=== PATIENT | female | born 1960 | race Caucasian/White ===

== ENCOUNTER 2018-07-18 09:39 | Inpatient (IN) ==
[2018-07-18] MEDS ORDERED: NS 1,000 ML IV ONE ×2 (10:03→11:57)
[2018-07-18] MEDS ORDERED: ZOFRAN IV ONE (10:03)
[2018-07-18 10:57] LABS: HEMATOCRIT 44.8 % (37.0-47.0); HEMOGLOBIN 16.3 g/dL (12.0-16.0); MCV 88.7 FL (81-99); RBC 5.05 XMIL (4.2-5.4); WBC 6.99 X1000 (4.8-10.8)
[2018-07-18 10:58] LABS: BASO# 0.01 X1000 (0.0-0.2); BASO% 0.1 % (0.0-0.8); EOS# 0.01 X1000 (0.0-0.7); EOS% 0.1 % (0.0-10.0); IMM GRAN# 0.05 X1000 (0.0-0.04); IMM GRAN% 0.7 % (0.0-0.5); LYMPH# 0.82 X1000 (1.2-3.4); LYMPH% 11.7 % (20.5-51.1); MCH 32.3 PG (27-31); MCHC 36.4 g/dL (33-37); MONO# 0.72 X1000 (0.11-0.59); MONO% 10.3 % (1.7-9.3); MPV 11.5 FL (7.4-10.4); NEUT# 5.38 X1000 (1.4-6.5); NEUT% 77.1 % (42.2-75.2); PLT 152 X1000 (130-400); RDW 13.2 % (11.5-14.5)
[2018-07-18 10:59] LABS: LYMPHS 12 % (21-51); MONO 8 % (1-9); SEGS 80 % (42-75)
[2018-07-18 11:02] LABS: ALBUMIN 4.9 g/dL (3.5-5.0); CALCIUM 9.2 mg/dL (8.8-10.2); CREATININE 2.6 mg/dL (0.5-0.9); POTASSIUM 2.8 mmol/L (3.5-5.1); TOTAL BILIRUBIN 0.7 mg/dL (0.20-1.00); TOTAL PROTEIN 8.2 g/dL (6.3-8.3)
[2018-07-18 11:06] LABS: URINE SOURCE CLEAN CATCH
[2018-07-18 11:11] LABS: CLARITY CLEAR (CLEAR); COLOR YELLOW
[2018-07-18 11:12] LABS: BILIRUBIN URINE NEGATIVE (NEGATIVE); BLOOD URINE 2+ (NEGATIVE); KETONE URINE TRACE mg/dL (NEGATIVE); LEUKOCYTES URINE 1+ (NEGATIVE); NITRITE URINE NEGATIVE (NEGATIVE); PROTEIN URINE 2+(100 mg/dL) mg/dL (NEGATIVE); SP GRAVITY URINE 1.025; UROBILINOGEN URINE NORMAL
[2018-07-18] MEDS ORDERED: KLOR-CON PO ONE (11:25)
[2018-07-18] MEDS ORDERED: ROCEPHIN 1 GM in NS 50 ML IV ONE (11:56)
[2018-07-18] MEDS ORDERED: POTASSIUM CHLORIDE 40 MEQ in NS 1,000 ML IV ONE (12:02)
--- NOTE | 2018-07-18 12:09 | Diag Imaging Result Doc PS360 ---
EXAM: FLAT/UPRIGHT ABD/1 VIEW CHEST HISTORY: nausea/vomiting TECHNIQUE: Flat and upright with chest, three views COMPARISON: None. FINDINGS: The lungs are well expanded. No cardiomegaly. No pneumonia. No free air beneath the diaphragm. Small air-fluid levels in mildly distended small bowel loops. No organomegaly. No foreign body. No abnormal calcifications. IMPRESSION: Ileus versus early obstruction. Electronically signed by Donavan Wilson 07/18/2018 12:07 PM
[2018-07-18] MEDS ORDERED: ZOFRAN ODT PO PRN (12:15)
[2018-07-18] MEDS ORDERED: NS + KCL 40 MEQ 1,000 ML IV ONE (12:15)
[2018-07-18] MEDS ORDERED: POTASSIUM CHLORIDE 60 MEQ in NS 500 ML IV ONE (14:00)
[2018-07-18] MEDS: NS 1,000 ML IV SCH ×2 (14:17→22:23)
[2018-07-18] MEDS ORDERED: ZOFRAN IV PRN (14:32)
[2018-07-18] MEDS ORDERED: TYLENOL PO PRN (14:32)
--- NOTE | 2018-07-18 15:25 | HISTORY AND PHYSICAL ---
PRIMARY CARE PHYSICIAN: Dr. Rice. CHIEF COMPLAINT: Nausea and vomiting. HISTORY OF PRESENT ILLNESS: This is a 58-year-old female, past medical history of hypertension, hypercholesterolemia who presented to the emergency department complaining of generalized weakness. She reports that during the last 3 days she started having profuse diarrhea, 10 times per day along with intractable nausea and vomiting. She was not able to keep anything down. Actually, Monday was the last time that she was able to eat. Those episodes of diarrhea and vomiting were getting worse to the point that she was feeling really weak, so she decided to come to the emergency department. She reports no fevers. No abdominal pain. No sick contacts. Here, upon ER evaluation, they were found out her creatinine was elevated with low potassium and also she was found to have a UTI. For those reasons, the patient is being admitted for further evaluation and treatment. PAST MEDICAL HISTORY: 1. Hypertension. 2. Vitamin B 12 deficiency. 3. Thrombocytopenia. The patient has seen Dr. Uriostegui in the office for this condition. 4. Hyperlipidemia. PAST SURGICAL HISTORY: 1. Two C sections. 2. Incision and drainage of abscess in the right breast when she was . ALLERGIES: She is allergic to sulfa. SOCIAL HISTORY: The patient lives with . She denies drinking alcohol, smoking tobacco, or using illicit drugs. FAMILY HISTORY: Positive for dad who of heart attack and mom who of cervical cancer. REVIEW OF SYSTEMS: Eleven systems were reviewed and all symptoms are related to H and P. PHYSICAL EXAMINATION: VITAL SIGNS: Temperature 97.6, heart rate 97, respiratory 17, blood pressure 127/68. O2 sat 98% on room air. GENERAL: This is a 58-year-old female lying in bed, in no acute distress. HEENT: Head is normocephalic, atraumatic. Pupils equal, round, reactive to light and accommodation. NECK: No JVD noted. No carotid bruits. No lymphadenopathy. No thyromegaly. CARDIOVASCULAR: S1, S2 heard. No murmurs, gallops or rubs. Regular rate and rhythm. RESPIRATORY: Clear bilaterally to auscultation. No work of breathing or using accessory muscles. ABDOMEN: A little bit distended with bowel sounds hypoactive. No signs of peritoneal irritation. EXTREMITIES: No clubbing, cyanosis or edema. Peripheral pulses present in both legs. NEUROLOGIC: Patient alert oriented x 3. Moves 4 extremities. LABORATORY DATA: White cell count is 6.99, hemoglobin 16.3, hematocrit 44.8, platelets 152,000. Sodium 133, potassium 2.8, creatinine 2.6. ASSESSMENT AND PLAN: 1. Acute kidney injury. I think that is because of dehydration. We are going to start IV fluids and in this case normal saline 150 mL per hour. We are going to check a renal profile during the next few days. 2. Hypokalemia secondary to profuse diarrhea. We will replete potassium. We will check BMP tomorrow. 3. Urinary tract infection. We will continue with ceftriaxone and awaiting for urine culture. 4. Further recommendations to follow according to the clinical situation of the patient. cc: Srini Quinonez MD MTDD
[2018-07-18] MEDS: LOVENOX SUBQ SCH (16:23)
[2018-07-18] MEDS: PRILOSEC PO SCH (23:38)
[2018-07-19] MEDS: NS 1,000 ML IV SCH ×2 (05:36→19:01)
[2018-07-19] MEDS: PRILOSEC PO SCH (06:06)
[2018-07-19 07:43] LABS: BASO# 0.02 X1000 (0.0-0.2); BASO% 0.4 % (0.0-0.8); EOS# 0.05 X1000 (0.0-0.7); EOS% 1.1 % (0.0-10.0); HEMATOCRIT 33.9 % (37.0-47.0); IMM GRAN# 0.02 X1000 (0.0-0.04); IMM GRAN% 0.4 % (0.0-0.5); LYMPH# 0.72 X1000 (1.2-3.4); MCH 32.2 PG (27-31); MCHC 35.4 g/dL (33-37); MCV 90.9 FL (81-99); MONO# 0.66 X1000 (0.11-0.59); MONO% 14.7 % (1.7-9.3); MPV 11.3 FL (7.4-10.4); NEUT# 3.03 X1000 (1.4-6.5); NEUT% 67.4 % (42.2-75.2); PLT 122 X1000 (130-400); RBC 3.73 XMIL (4.2-5.4); RDW 12.9 % (11.5-14.5)
[2018-07-19 07:50] LABS: AGAP 12; ALBUMIN 3.4 g/dL (3.5-5.0); BUN 20 mg/dL (8-22); CALCIUM 7.6 mg/dL (8.8-10.2); CHLORIDE 107 mmol/L (98-107); COSMO 281; CREATININE 0.8 mg/dL (0.5-0.9); ESTIMATED GFR > 60; GLUCOSE 115 mg/dL (70-104); PHOSPHORUS 1.2 mg/dL (2.7-4.5); POTASSIUM 2.7 mmol/L (3.5-5.1); SODIUM 139 mmol/L (136-145); TCO2 20 mmol/L (25-35)
[2018-07-19] MEDS ORDERED: SODIUM PHOSPHATE 35 MMOL in NS 250 ML IV ONE (09:15)
[2018-07-19] MEDS: POTASSIUM CHLORIDE 60 MEQ in NS 500 ML IV SCH ×2 (10:27→23:09)
--- NOTE | 2018-07-19 12:00 | PROGRESS NOTE ---
DATE: 07/19/2018 SUBJECTIVE: Patient reports feeling less nauseated but is still having diarrhea 5 to 10 times that also wakes her up while she is sleeping. OBJECTIVE: Vital Signs: Temperature 97.6 degrees, heart rate 78, respiratory rate 18, blood pressure 117/51, O2 saturation 95% on room air. General: This is a 58-year-old female lying in bed, in no acute distress. Cardiovascular: S1, S2 heard. No murmurs, gallops, or rubs. Regular rate and rhythm. Respiratory: Clear bilaterally to auscultation. No work of breathing or using accessory muscles. Abdomen is soft, a little bit distended with hyperactive bowel sounds. No organomegaly noted. Extremities: No clubbing, cyanosis, or edema. Peripheral pulses present in both legs. Neurological: Patient is alert and oriented x3. Moves 4 extremities. LABORATORY DATA: The renal function is completely back to normal. White cell count is normal. The potassium is 2.7 with phosphorus 1.2. ASSESSMENT AND PLAN: 1. Acute kidney injury. That is completely resolved. That was secondary to dehydration. We will continue with IV fluids, in this case normal saline of 150 mL per hour, considering that this patient continues to have diarrhea. 2. Hypokalemia secondary to diarrhea. We will replete potassium today. 3. Hypophosphatemia. We will replete phosphorus today. 4. Urinary tract infection. We will continue with ceftriaxone. Awaiting urine culture result. 5. Abdominal distention. Because this patient continues to have diarrhea, we will order stool studies that will include C difficile and also culture and ova and parasite and we will do a CT scan of the abdomen, considering that the first abdomen x-ray showed some ileus versus early obstruction. We will continue with the same management. cc: Srini Quinonez MD
--- NOTE | 2018-07-19 14:50 | Diag Imaging Result Doc PS360 ---
EXAM: CT ABD/PELVIS W/PO AND IV CON - 07/19/2018 HISTORY: persistent diarrhea TECHNIQUE: CT abdomen/pelvis with oral and intravenous contrast COMPARISON: None. FINDINGS: The visualized lung bases are clear. The liver has mildly lobulated contours but demonstrates homogeneous enhancement. There is an apparent tiny cyst at the dome of liver. There is no other focal liver lesion identified. Spleen appears upper range of normal in size. There are no abnormalities of the adrenal glands or pancreas identified. The gallbladder appears mildly distended, but there are no calcified gallstones or pericholecystic inflammation identified. There is no biliary ductal dilatation identified. There are apparent tiny bilateral renal cysts. The bilateral kidneys otherwise enhance. There is no hydronephrosis. There are atherosclerotic calcifications noted in the aorta and iliac arteries. There is no evidence of bowel obstruction. The appendix is unremarkable. There are some retained fluid in the left colon and rectum. There is apparent mild wall thickening along much of the colon, but there is no substantial pericolic inflammation. These findings may relate to mild colitis. No evidence of diverticulitis. There is no abscess identified. There is no free air. There are multiple small and mildly prominent mesenteric lymph nodes which can be seen with mesenteric adenitis. Images of pelvis show no abnormal mass. There is trace free fluid in posterior pelvis. IMPRESSION: Apparent mild colitis. Possible associated mesenteric adenitis. No abscess. No free air. No bowel obstruction. Unremarkable appendix. Mildly lobulated liver contours. This can be seen with cirrhosis. No evidence of focal liver lesion, other than an apparent tiny cyst at the dome of the liver. Upper normal splenic size. Mildly distended gallbladder. No calcified gallstones. No pericholecystic inflammation. Apparent tiny renal cysts. Atherosclerotic calcifications noted. This exam was performed using automated exposure control, adjustment of mA or kV according to patient size, and/or use of iterative reconstruction technique. Electronically signed by Mj Latham 07/19/2018 2:48 PM
[2018-07-19] MEDS: LOVENOX SUBQ SCH (15:43)
[2018-07-19] MEDS: LEVAQUIN 750 MG/D5W 750 MG/150 ML IVPB IV SCH (16:46)
[2018-07-19] MEDS: FLAGYL 500 MG/NS 500 MG/100 ML IVPB IV SCH (18:18)
[2018-07-20] MEDS: FLAGYL 500 MG/NS 500 MG/100 ML IVPB IV SCH ×3 (03:19→18:57)
[2018-07-20] MEDS: PRILOSEC PO SCH ×2 (05:58→07:12)
[2018-07-20] MEDS: NS 1,000 ML IV SCH ×2 (07:20→20:23)
[2018-07-20 08:17] LABS: BASO# 0.01 X1000 (0.0-0.2); BASO% 0.3 % (0.0-0.8); EOS# 0.07 X1000 (0.0-0.7); EOS% 2.2 % (0.0-10.0); HEMATOCRIT 30.5 % (37.0-47.0); IMM GRAN# 0.01 X1000 (0.0-0.04); IMM GRAN% 0.3 % (0.0-0.5); LYMPH# 0.83 X1000 (1.2-3.4); LYMPH% 26.4 % (20.5-51.1); MCH 32.4 PG (27-31); MCHC 36.1 g/dL (33-37); MONO# 0.67 X1000 (0.11-0.59); MONO% 21.3 % (1.7-9.3); MPV 10.9 FL (7.4-10.4); NEUT# 1.55 X1000 (1.4-6.5); NEUT% 49.5 % (42.2-75.2); PLT 95 X1000 (130-400); RBC 3.39 XMIL (4.2-5.4); RDW 12.7 % (11.5-14.5); WBC 3.14 X1000 (4.8-10.8)
[2018-07-20 08:26] LABS: AGAP 9; ALBUMIN 3.1 g/dL (3.5-5.0); BUN 7 mg/dL (8-22); CALCIUM 7.1 mg/dL (8.8-10.2); CHLORIDE 106 mmol/L (98-107); COSMO 274; CREATININE 0.5 mg/dL (0.5-0.9); ESTIMATED GFR > 60; GLUCOSE 112 mg/dL (70-104); PHOSPHORUS 1.2 mg/dL (2.7-4.5); POTASSIUM 2.8 mmol/L (3.5-5.1); SODIUM 138 mmol/L (136-145); TCO2 23 mmol/L (25-35)
[2018-07-20 08:27] LABS: EOS 2 % (1-10); LYMPHS 27 % (21-51); MONO 19 % (1-9); SEGS 52 % (42-75)
[2018-07-20] MEDS ORDERED: SODIUM PHOSPHATE 40 MMOL in NS 250 ML IV ONE (09:04)
[2018-07-20] MEDS ORDERED: IMODIUM PO PRN (10:13)
[2018-07-20] MEDS: POTASSIUM CHLORIDE 60 MEQ in NS 500 ML IV SCH ×2 (10:36→20:20)
--- NOTE | 2018-07-20 12:52 | PROGRESS NOTE ---
DATE: 07/20/2018 SUBJECTIVE: The patient reports still having less diarrhea, although this is still present 4 to 5 times during the day, and no more episodes of nausea or vomiting. Actually, she is feeling very hungry. OBJECTIVE: Vital Signs: Temperature 98.6, heart rate 66, respiratory rate 18, blood pressure 110/44, O2 saturation 97% on room air. General Examination: A 58-year-old female lying in bed, in no acute distress. Cardiovascular: S1, S2 heard. No murmurs, gallops, or rubs. Regular rate and rhythm. Respiratory: Clear bilaterally to auscultation. No work of breathing or using accessory muscles. Abdomen: Soft, nontender to palpation. Bowel sounds present. No organomegaly. Extremities: No clubbing, cyanosis, or edema. Peripheral pulses present in both legs. Neurological: The patient is alert and oriented x3. Moves 4 extremities. LABORATORY DATA: Reviewed. Potassium is still low at 2.8, phosphorus 1.2. ASSESSMENT AND PLAN: 1. Acute kidney injury, resolved. We will continue with IV fluids at this time. We will decrease the rate to 75 mL per hour. 2. Hypokalemia secondary to diarrhea. We will repeat potassium today and because we have ruled out causes of infectious systemic inflammatory response syndrome, will start Imodium on this patient. 3. Hypophosphatemia. We will replete phosphorus today. 4. Urinary tract infection. The urine culture shows mixed margret. We will continue with the same medication of ceftriaxone while this patient is in the hospital. 5. Abdominal distention. We have checked a CT of the abdomen which basically showed focal colitis. At this point, we will continue to monitor this patient and if both electrolytes, phosphate and potassium are back to normal, she can be discharged. cc: Srini Quinonez MD
[2018-07-20] MEDS ORDERED: IMODIUM PO SCH (13:00)
[2018-07-20] MEDS: LEVAQUIN 750 MG/D5W 750 MG/150 ML IVPB IV SCH (17:47)
[2018-07-20] MEDS: LOVENOX SUBQ SCH (17:47)
[2018-07-21] MEDS: FLAGYL 500 MG/NS 500 MG/100 ML IVPB IV SCH ×2 (02:51→09:20)
[2018-07-21] MEDS: PRILOSEC PO SCH (06:12)
[2018-07-21 08:20] VITALS: BP 118/66
[2018-07-21 08:27] LABS: BASO# 0.02 X1000 (0.0-0.2); BASO% 0.6 % (0.0-0.8); EOS# 0.09 X1000 (0.0-0.7); EOS% 2.9 % (0.0-10.0); HEMOGLOBIN 10.3 g/dL (12.0-16.0); IMM GRAN# 0.05 X1000 (0.0-0.04); IMM GRAN% 1.6 % (0.0-0.5); LYMPH% 35.4 % (20.5-51.1); MCH 31.9 PG (27-31); MCHC 35.5 g/dL (33-37); MCV 89.8 FL (81-99); MONO# 0.58 X1000 (0.11-0.59); MONO% 18.6 % (1.7-9.3); MPV 10.6 FL (7.4-10.4); NEUT# 1.27 X1000 (1.4-6.5); NEUT% 40.9 % (42.2-75.2); PLT 90 X1000 (130-400); RBC 3.23 XMIL (4.2-5.4); RDW 12.7 % (11.5-14.5); WBC 3.11 X1000 (4.8-10.8)
[2018-07-21 08:33] LABS: AGAP 9; ALBUMIN 2.8 g/dL (3.5-5.0); BUN 4 mg/dL (8-22); CALCIUM 7.1 mg/dL (8.8-10.2); CHLORIDE 110 mmol/L (98-107); COSMO 280; CREATININE 0.4 mg/dL (0.5-0.9); ESTIMATED GFR > 60; GLUCOSE 105 mg/dL (70-104); PHOSPHORUS 1.7 mg/dL (2.7-4.5); POTASSIUM 3.1 mmol/L (3.5-5.1); SODIUM 142 mmol/L (136-145); TCO2 23 mmol/L (25-35)
[2018-07-21 08:57] LABS: EOS 2 % (1-10); LYMPHS 43 % (21-51); MONO 6 % (1-9); SEGS 49 % (42-75)
[2018-07-21] MEDS ORDERED: SODIUM PHOSPHATE 40 MMOL in NS 250 ML IV ONE (09:30)
[2018-07-21] MEDS ORDERED: POTASSIUM CHLORIDE 60 MEQ in NS 500 ML IV ONE (09:30)
[2018-07-21] MEDS: NS 1,000 ML IV SCH (10:46)
--- NOTE | 2018-07-21 20:25 | DISCHARGE SUMMARY ---
ADMISSION DATE: 07/18/2018 DISCHARGE DATE: 07/21/2018 PRIMARY CARE PHYSICIAN: Dr. Ingrid Rice. ADMISSION DIAGNOSES: 1. Acute kidney injury due to dehydration. 2. Hypokalemia secondary to profuse diarrhea. 3. Urinary tract infection. DISCHARGE DIAGNOSES: 1. Acute kidney injury secondary to dehydration, resolved. 2. Hypokalemia secondary to profuse diarrhea, resolved. 3. Urinary tract infection with urine culture showing mixed margret. SUMMARY OF FINDINGS: This is a 58-year-old female who presented to the emergency room with generalized weakness stating for 3 days she had profuse diarrhea up to 10 times a day along with intractable nausea, vomiting, and was not unable to keep anything down. When she arrived, she stated that she felt really weak. She was found to have a creatinine on arrival of 2.6, a potassium of 2.8. She was felt to have a mild UTI and started on antibiotics, but her urine culture showed mixed margret. Her kidney function has returned to normal at 0.4. Her potassium is improved up to 3.1, and so it is now felt that she can safely be discharged home today. DISCHARGE MEDICATIONS: Her discharge medications include Norvasc 10 mg p.o. daily, calcium citrate 1 p.o. b.i.d., omega-3-6-9, complex soft gel 400 mg p.o. b.i.d., prescription for Levaquin 500 mg p.o. daily #7 with no refills, loperamide 2 mg p.o. q .4 hours p.r.n., Losartan/hydrochlorothiazide 100/12.5 p.o. daily, a prescription for Flagyl 500 mg p.o. t.i.d. #21 with no refills, montelukast sodium 10 mg p.o. daily, omeprazole 40 mg p.o. daily, potassium 20 mEq p.o. b.i.d., and simvastatin 40 mg p.o. at bedtime. FOLLOWUP: She needs to follow up with her primary care physician in 1 to 2 weeks and call the office for an appointment. TIME SPENT WITH PATIENT: This a 33-minute discharge. Dictated by JUSTINO West for Srini Quinonez MD Addendum: Patient seen and examined by myself. Agree with JUSTINO note. It reflects my assessment and plan. Patient is being discharged in stable condition. Will be seen by her primary care doctor in a week. cc: JUSTINO West MD Sarah E. Styers, MD MTDD
--- NOTE | 2018-07-24 17:43 | PROVIDER DOCUMENTATION ---
This chart was entered by Juanita Shearer Scribe, acting as scribe for Francisco Stewart MD. HPI-Abdominal Pain/GI Problem - General Chief Complaint: N/V/D Stated Complaint: N/V/D Time Seen by Provider: 07/18/18 09:54 Source: patient Allergies/Adverse Reactions: Patient Allergies Allergy/AdvReac Type Severity Reaction Status Date / Time Sulfa (Sulfonamide Allergy Intermediate HIVES Verified 08/25/12 18:03 Antibiotics) Home Medications: Home Medication List Medication Instructions Recorded Confirmed Last Taken Type Amlodipine [Norvasc] 10 mg PO DAILY 08/25/12 07/18/18 08/25/12 07:00 History Calcium Citrate/Vitamin D3 1 each PO BID 08/25/12 07/18/18 08/25/12 07:00 History [Calcium Citrate - Vit D3 Tab] Fish Oil/Borage/Flax/Om3,6,9#1 400 mg PO BID 08/25/12 07/18/18 08/25/12 07:00 History [[place] 3-6-9 Complex Softgel] Losartan/Hctz [Hyzaar 100/12.5 mg 1 tab PO DAILY 08/25/12 07/18/18 08/25/12 07:00 History Tab] Omeprazole 40 mg PO DAILY 08/25/12 07/18/18 08/25/12 07:00 History Potassium Chloride 20 meq PO BID 08/25/12 07/18/18 08/25/12 07:00 History SIMVAstatin [Zocor] 40 mg PO QHS 08/25/12 07/18/18 08/24/12 20:00 History Montelukast Sodium [Singulair] 10 mg PO DAILY 07/18/18 07/18/18 Unknown History Levofloxacin [Levaquin] 500 mg PO DAILY #7 tab 07/21/18 Unknown Rx Loperamide [Imodium] 2 mg PO Q4H PRN PRN cap 07/21/18 Unknown Rx Metronidazole [Flagyl] 500 mg PO TID #21 tab 07/21/18 Unknown Rx - History of Present Illness-ABD Nature of Presenting Problems: 58 yof presents to the ed with c/o abdominal cramping with n/v/d onset 3 days prior. [facility] and since every day has had approximately 12 episodes of diarrhea and vomiting. pt on exam is nontoxic in appearance Abdominal Pain Onset Location: reports: generalized abdomen Quality of Pain: reports: cramping Severity in ED: reports: mild Onset/Duration: reports: 3 days ago Timing: reports: intermittent Activities at Onset: reports: light activity Exposure to sick contacts?: No Modifying Factors: improves with: nothing. worse with: eating Associated Symptoms: reports: diarrhea, nausea, vomiting. denies: back/neck dianna n, chest pain, fatigue, shortness of breath, syncope Last BM: this morning Dark Stools Present?: reports: none noticed Rectal Bleeding: reports: none # of Diarrhea Episodes: 12 (daily) Rectal Pain: reports: none # of Vomiting Episodes: 12 (daily) Emesis Description: reports: other (whatever pt takes PO per pt) Bruising or Bleeding Gums?: No Similar Symptoms Previously?: No Recently seen or treated by another doctor?: No Review of Systems - Adult - REVIEW OF SYSTEMS - ADULT Constitutional: denies: chills, fever Eyes: reports: no symptoms reported Ears, Nose, Mouth & Throat: reports: no symptoms reported Cardiovascular: denies: chest pain, palpitations Respiratory: denies: cough, shortness of breath, wheezing Gastrointestinal: reports: see HPI, abdominal pain, diarrhea, nausea, vomiting Genitourinary: reports: no symptoms reported Musculoskeletal: denies: back pain, neck pain Integumentary: reports: no symptoms reported Neurological: reports: no symptoms reported Psychiatric: reports: no symptoms reported Endocrine: reports: no symptoms reported Hematologic/Lymphatic: reports: no symptoms reported Allergic/Immunologic: reports: no symptoms reported All Other Systems: Reviewed and Negative Past History - Adult - PAST MEDICAL HISTORY-ADULT Review of Records: reports: Nursing Assessment Review, Medications Reviewed Major Childhood Illnesses: reports: denies history Cardiovascular: reports: HTN, hyperlipidemia Respiratory: reports: denies history Gastrointestinal: reports: denies history Obstetrical/Gynecological: reports: denies history Genitourinary: reports: kidney stones Musculoskeletal: reports: denies history Neurological: reports: denies history Psychiatric: reports: denies history Endocrine/Immune: reports: anemia, Diabetes Diabetes controlled by:: Diet Other Conditions: reports: denies history - PRIOR SURGERIES/PROCEDURES Surgical/Procedure History: reports: , breast - IMMUNIZATION STATUS Childhood Immunizations: See Nurse Assessment Flu Vaccine: See Nurse Assessment - FAMILY HISTORY Family History: reviewed, not pertinent - SOCIAL HISTORY Smoking: quit greater than 1 year Substance Use: none/never Alcohol Use Frequency: never Living Situation: family Physical Exam-General - PHYSICAL EXAM-ADULT Initial Vital Signs Reviewed: Yes - CONSTITUTIONAL General Appearance: appears well, alert, no apparent distress - EYES Eyes: PERRL/EOMI - HEAD, EARS, NOSE, MOUTH & THROAT HENMT: moist mucous membranes, normal ENT inspection - NECK Neck: non-tender, full range of motion, supple, normal inspection - RESPIRATORY Respiratory: chest non-tender, lungs clear, normal breath sounds, no pleuratic chest pain, no respiratory distress, no accessory muscle use - CARDIOVASCULAR Cardiovascular: normal peripheral pulses, regular rate, rhythm, tachycardia (117) - GASTROINTESTINAL (ABDOMEN) Abdominal Exam: normal bowel sounds, non tender, soft - LYMPHATIC Lymphatic: no adenopathy - MUSCULOSKELETAL Back Exam: normal inspection, no CVA tenderness, no vertebral tenderness Extremity: normal range of motion, non-tender, normal gait, normal inspection - SKIN Integumentary: normal color, normal turgor, warm/dry - NEUROLOGIC Neurologic: grossly normal, no motor/sensory deficits - PSYCHIATRIC Psych/Mental Status: normal mood/affect, normal thought content, normal thought process, oriented x 3 Progress - PLAN OF CARE/RESULTS Progress/Plan/Lab Results: Vital Signs - 8 hr 07/18/18 09:43 07/18/18 09:47 Temperature 97.5 F L 97.5 F L Pulse Rate 117 H 117 H Respiratory Rate 18 18 Blood Pressure 144/82 144/82 O2 Sat by Pulse Oximetry 97 96 Orders Category Date Time Status AMYLASE [CHEM] Stat Lab 07/18/18 10:03 Uncollected CBC WITH ELECTRONIC DIFF [HEME] Stat Lab 07/18/18 09:55 Uncollected COMPREHENSIVE METABOLIC PANEL [CHEM] Stat Lab 07/18/18 09:55 Uncollected LIPASE [CHEM] Stat Lab 07/18/18 10:03 Uncollected URINALYSIS DIPSTICK ONLY PL [URINALYSIS] Stat Lab 07/18/18 09:55 Uncollected 0.9% Sodium Chloride Inj [Ns] 1,000 ml Med 07/18/18 10:03 Active IV 999 mls/hr Ondansetron [Zofran] Med 07/18/18 10:03 Discontinued 4 mg IV NOW ONE Result Diagrams: 07/21/18 07:50 07/21/18 07:50 - REASSESSMENT Reassessment #1 Time Reassessed: 11:56 Status: improving - XRAY 1 XRAY: Bilateral XRAY Study: Abdomen Impression: See EMR Report (EXAM: FLAT/UPRIGHT ABD/1 VIEW CHEST HISTORY: nausea/vomiting TECHNIQUE: Flat and upright with chest, three views COMPARISON: None. FINDINGS: The lungs are well expanded. No cardiomegaly. No pneumonia. No free air beneath the diaphragm. Small air-fluid levels in mildly distended small bowel loops. No organomegaly. No foreign body. No abnormal calcifications. IMPRESSION: Ileus versus early obstruction. Electronically signed by Donavan Wilson 07/18/2018 12:07 PM 07/18/18 1207 Interpreting Physician: Donavan Wilson MD Dictated Date/Time: 07/18/18 1206 cc: Francisco Stewart MD; Ingrid Rice MD) - CONSULTS/PCP/HOSPITALIST Notification #1 *Consult/PCP/Hospitalist*: hospitalist dr atkins Time Discussed: 11:56 Consult Disposition: Admit Departure - Departure Date of Disposition Decision: 07/18/18 Time of Disposition Decision: 13:30 DIAGNOSIS: UTI (urinary tract infection) Disposition: ADMITTED INPATIENT 09 Certified Medical Emergency: Emergent Condition: Stable - Critical Care Note This patient required my direct & personal management of CC.: No Attestation - Physician/ SANDY Attestation Patient care was provided by Advanced Practice Provider:: No The physician spent face to face time with patient:: Yes Advanced Practice Provider documentation review:: Supervising physician onsite and consulted in the evaluation and care of this patient. The physician did have a face to face encounter with the patient. This chart was documented by the indicated scribe, (Juanita Shearer Scribe) and accurately reflects the services I performed and decisions made by me, Francisco Stewart MD, as attested by the provider's signature.
== END 2018-07-21 15:53 | disposition home or self-care (01) | DRG 683 ==
LOC: P.ED 09:39 → P.MEDSURG 09:40
PROVIDERS: ADMIT Internal Medicine; ATTEND Internal Medicine
CPT/HCPCS: 74022; 74177; 80053; 80069; 81003; 82150; 83690; 85025; 87045; 87046; 87088; 87177; 87205; 87324; 87449; 88313; 89055; 96361; 96365; 99285; A9270; J0696; J1650; J1956; J2405; J3480; J7030; J7040; J7050; Q9967; S0030